=== PATIENT | female | born 1970 | race Caucasian/White ===

== ENCOUNTER 2018-11-14 09:56 | Day surgery (SDC) | payer BC ==
[~2018-11-14 09:56] MED LIST: ACETAMINOPHEN 1,000 MG/100 ML BTL IV ONE; CEFAZOLIN 2 Gram 2 GM/50 ML BAG IVPB ONE
[2018-11-14] MEDS ORDERED: LIDOCAINE 2% MDV (20MG/ML) 20ML VIAL IV ONE (09:57)
[2018-11-14] MEDS ORDERED: KETOROLAC 30 MG/ML VIAL IVP ONE (09:57)
[2018-11-14] MEDS ORDERED: PROPOFOL 10 MG/ML VIAL IV ONE (09:57)
[2018-11-14] MEDS ORDERED: MIDAZOLAM HCL 2MG/2ML VIAL IV ONE (09:57)
[2018-11-14] MEDS ORDERED: FENTANYL PF 100MCG/2ML VIAL IV ONE (09:57)
[2018-11-14] MEDS ORDERED: SEVOFLURANE 250 ML INH ONE (09:57)
[2018-11-14] MEDS ORDERED: ONDANSETRON HCL IV 4 MG/2 ML VIAL IVP ONE (09:57)
[2018-11-14] MEDS ORDERED: DEXAMETHASONE 4 MG/ML 1ML VIAL IVP ONE (09:57)
--- NOTE | 2018-11-15 08:20 | Operative Note ---
DATE OF SURGERY: 11/14/2018 Surgeon: Harpreet Ferrell DO PREOPERATIVE DIAGNOSIS: Carpometacarpal arthrosis of the left thumb. POSTOPERATIVE DIAGNOSIS: Carpometacarpal arthrosis of the left thumb. OPERATION: CMC hemiarthroplasty of the left thumb using 3.5 loop magnification. DESCRIPTION OF PROCEDURE: This 48-year-old female was taken to the operating room and placed in the supine position on the operating room table. General anesthesia was induced. The left upper extremity was elevated. It was prepped with Hibiclens and draped in the usual sterile fashion. It was exsanguinated and the tourniquet inflated to 250 mmHg. An incision was made from just distal to the tip of the radial styloid to the distal third of the thumb metacarpal in a straight line, and dissection was carried down through the skin and subcutaneous tissue. The superficial branches of the radial nerve were identified and protected. We then made the approach between the extensor pollicis brevis and longus. The incision was made to the dorsal capsule and up the periosteum approximately [address] distal on the metacarpal. Subperiosteal dissection was carried out around the bone to expose the CMC joint. A sizing device was placed in the joint and a size small was seen to be the appropriate size. Subsequently, a bone cut was made on the proximal 1st metacarpal after measuring with the guide, and it was found to be a satisfactory cut. Subsequently, we clearly exposed the superior surface of the trapezium. A Steinmann pin was then used to identify the center using the size small guide, and once the Steinmann pin had been placed, the image intensifier was used to confirm that the hole was in the center of the trapezium. It was found to be satisfactory. Subsequently the reamer was used to the appropriate level on the reamer to fully seat the component. This was then removed and we used the broaches to broach the metacarpal starting with a small 10 and then subsequently a 20 with solid bone. Once this had been accomplished, we then impacted the trial, and the trial was seated and taken through range of motion and found to be satisfactory. It was stable with the thumb in a markedly adducted position. There was no dislocation. The trial component was removed and the wound copiously irrigated with pulse lavage lactated Ringer's solution. The final component was inserted which was a size 20 small NuGrip PyroCarbon component. This was securely seated. The image intensifier confirmed its position and alignment. We then copiously irrigated the wound again removing all debris from the wound and the periosteum and capsule were closed with 0 Vicryl. The subcutaneous tissue closed with 4-0 Vicryl and the skin with running 4-0 nylon suture. The thumb was splinted in an abducted position and after the splint had been applied, tourniquet released and the patient taken to the recovery room in satisfactory condition. GROSS PATHOLOGY: This patient demonstrated severe full-thickness articular cartilage loss noted on the trapezium as well as on the base of the 1st metacarpal. Final components inserted were an [employer] size 20 small NuGrip component. CC: DO MARIELLE Daniels
== END 2018-11-14 14:35 | disposition home or self-care (01) ==
LOC: SUR 09:56
PROVIDERS: ATTEND Orthopaedic Surgery
DX: M18.12 Unilateral primary osteoarthritis of first carpometacarpal joint, left hand (principal); G47.33 Obstructive sleep apnea (adult) (pediatric); F17.210 Nicotine dependence, cigarettes, uncomplicated
CPT/HCPCS: 25447; 01830; 64417; J1885; J2405; J3010; J0690; 76942